=== PATIENT | female | born 1960 ===

== ENCOUNTER 2024-01-16 05:30 | Day surgery (SDC) | payer OTHER ==
[2024-01-11 09:17] LABS: HEMATOCRIT 43.2 % (36.0-45.00); HEMOGLOBIN 14.5 g/dL (12.0-15.00); MEAN CORPUSCULAR HEMOGLOBIN 28.5 pg (27.00-32.0); MEAN CORPUSCULAR HGB CONC 33.5 g/dl (32.0-36.0); PLATELET COUNT 225 K/uL (150-450); RED BLOOD COUNT 5.09 M/uL (4.00-6.00); RED CELL DISTRIBUTION WIDTH 13.6 % (11.5-14.5)
[2024-01-11 09:18] LABS: PH,URINE 5.5 (5.0-8.0); URINE APPEARANCE Clear; URINE BILIRRUBIN Negative (NEGATIVE); URINE BLOOD Trace; URINE COLOR Yellow; URINE GLUCOSE Negative (NEGATIVE); URINE KETONE Negative (NEGATIVE); URINE LEUKOCYTE Negative; URINE NITRATE Negative; URINE PROTEIN Negative (NEGATIVE); URINE UROBILINOGEN 0.2 E.U./dl
[2024-01-11 09:22] LABS: URINE BACTERIA 12.5 uL (0.0-1933); URINE RBC 12.3 uL (0.0-20.8)
[2024-01-11 09:23] LABS: URINE WBC 0.9 uL (0.0-23.2)
[2024-01-11 09:37] LABS: INR 1.01; PARTIAL THROMBOPLASTIN TIME 23.1 SECONDS (22.0-34.0)
[2024-01-11 10:10] LABS: ALBUMIN 4.4 gm/dL (3.4-5.0); BILIRUBIN TOTAL 0.62 mg/dL (0.3-1.2); CALCIUM 9.5 mg/dL (8.5-10.1); CREATININE SERUM 0.52 mg/dL (0.55-1.02); GFR 119.49; GLOBULINA 3.6 G/DL (2.4-3.5); POTASSIUM 4.2 mEq/L (3.5-5.1)
[~2024-01-16 05:30] MED LIST: CLONAZEPAM0.5 MG; LOSARTAN POTASS50 MG; ROSUVASTATIN CA20 MG; ZOLPIDEM 10MG
[2024-01-16] MEDS ORDERED: BUPIVACAINE HCL 30 ML VIAL IJ ONE (11:15)
[2024-01-16] MEDS ORDERED: LIDOCAINE HCL 1% 20ML VIAL IJ ONE (11:15)
[2024-01-16] MEDS ORDERED: METHYLPREDNISOLONE ACETATE 80 MG/ML VIAL IJ ONE (11:15)
[2024-01-16] MEDS ORDERED: EPINEPHRINE HCL/PF 1 MG/ML AMPUL IR ONE ×2 (11:30)
[2024-01-16] MEDS ORDERED: MORPHINE SULFATE 4 MG/ML VIAL IV ONE (11:30)
[2024-01-16] MEDS ORDERED: PROMETHAZINE HCL 25 MG/ML AMPUL IM PRN (11:45)
[2024-01-16] MEDS ORDERED: CEFAZOLIN SODIUM 1,000 MG VIAL IV ONE ×2 (11:45→12:00)
[2024-01-16] MEDS ORDERED: MEPERIDINE HCL/PF 25 MG/ML VIAL IM PRN (11:45)
[2024-01-16] MEDS ORDERED: DUI500 PO (11:46)
[2024-01-16] MEDS ORDERED: TRAM1TAB98 PO (11:46)
[2024-01-16] MEDS ORDERED: CEFADROXIL 500 MG CAPSULE PO SCH (21:00)
== END 2024-01-16 16:45 | disposition home or self-care (01) ==
LOC: CIR.AMB 05:30
PROVIDERS: ATTEND Orthopaedic Surgery Sports Medicine
DX: S83.232A Complex tear of medial meniscus, current injury, left knee, initial encounter (principal); S83.272A Complex tear of lateral meniscus, current injury, left knee, initial encounter; M17.12 Unilateral primary osteoarthritis, left knee